=== PATIENT | female | born 1990 | race Caucasian/White ===

== ENCOUNTER 2018-05-10 21:18 | Emergency (ER) | payer OTHER ==
--- NOTE | 2018-05-10 21:33 | ED ---
Complex/Multi-Sys Presentation - HPI Summary HPI Summary: Pt is 27 y/o F c/o L shoulder pain s/p trauma onset [employer]. Pt was playing roller [employer] when she was hit shoulder to shoulder by another player, and felt fire immediately in her shoulder. Pt stayed upright and finished the game. Pt arrives to ED with ice and sling. Right hand dominant. - History Of Current Complaint [facility] Seen by Provider: 05/10/18 21:26 Hx Obtained From: Patient Onset/Duration: Sudden Onset, Lasting Hours, Still Present Timing: Constant Location: Pain At: - L anterior shoulder - Allergies/Home Medications Allergies/Adverse Reactions: Allergies Allergy/AdvReac Type Severity Reaction Status Date / Time sulfamethoxazole Allergy Vomiting Verified 05/10/18 21:22 [From Bactrim] trimethoprim [From Bactrim] Allergy Vomiting Verified 05/10/18 21:22 Home Medications: Home Medications Armodafinil (NF) [Nuvigil (NF)] 150 mg PO DAILY 05/10/18 [History Confirmed ] Sodium Oxybate [Xyrem] 450 grams PO BID 05/10/18 [History Confirmed 05/10/18] PMH/Surg Hx/FS Hx/Imm Hx Previously Healthy: Yes Respiratory History: Denies: Hx Chronic Obstructive Pulmonary Disease (COPD) Sensory History: Denies: Hx Legally Blind Infectious Disease History: No Infectious Disease History: Denies: Traveled Outside the [place] in Last 30 Days - Family History Known Family History: Positive: Cardiac Disease - Grandfather Negative: Diabetes - Social History Occupation: Employed Full-time Lives: Alone Review of Systems Negative: Fever Positive: Other - L shoulder pain All Other Systems Reviewed And Are Negative: Yes Physical Exam - Summary Physical Exam Summary: Appearance: Well-appearing, Well-nourished, lying in bed comfortably Skin: Warm, dry, no obvious rash Eyes: sclera anicteric, no conjunctival pallor ENT: mucous membranes moist, pharynx appears normal Neck: Supple, nontender Respiratory: Clear to auscultation, no signs of respiratory distress Cardiovascular: Normal S1, S2. No murmurs. Normal distal pulses in tibial and radial bilaterally. Abdomen: Soft, nontender, normal active bowel sounds present Musculoskeletal: L AC joint tenderness, no deformity, clavicle intact Neurological: A&Ox3, awake and alert, mentation is normal, speech is fluent and appropriate Psychiatric: affect is normal, does not appear anxious or depressed Triage Information Reviewed: Yes Vital Signs On Initial Exam: Initial Vitals Temp Pulse Resp BP Pulse Ox 99.3 F 105 19 116/76 100 05/10/18 21:19 05/10/18 21:19 05/10/18 21:19 05/10/18 21:19 05/10/18 21:19 Vital Signs Reviewed: Yes Diagnostics - Vital Signs Vital Signs Temp Pulse Resp BP Pulse Ox 05/10/18 21:19 99.3 F 105 19 116/76 100 - Laboratory Lab Statement: Any lab studies that have been ordered have been reviewed, and results considered in the medical decision making process. - Radiology Shoulder XR Xray Interpretation: No Acute Changes - negative, clavicle intact. Radiology Interpretation Completed By: ED Physician - pending official review. Complex Multi-Symp Course/Dx - Diagnoses Provider Diagnoses: Acromioclavicular separation, type 1 Discharge - Sign-Out/Discharge Documenting (check all that apply): Patient Departure - Discharge Plan Condition: Good Disposition: HOME Patient Education Materials: Acromioclavicular Separation (ED) Referrals: No Primary Care Phys,NOPCP [Primary Care Provider] - Additional Instructions: No contact sports until this heals, which will take several weeks at least. use the sling for comfort, but after the weekend you should be doing at least some passive range of motion of the shoulder a few times daily to keep it from getting stiff. - Billing Disposition and Condition Condition: GOOD Disposition: Home
--- NOTE | 2018-05-10 22:19 | RAD ---
INDICATION: Left shoulder pain after roller derby injury COMPARISON: None. TECHNIQUE: 4 views of the left shoulder were obtained. FINDINGS: The adequately corticated bones are in normal alignment. The acromioclavicular joint measures 5 mm in width, the top normal with of this joint. Fracture, dislocation or focal bony abnormality is seen. IMPRESSION: ABNORMAL WIDTH OF THE LEFT ACROMIOCLAVICULAR JOINT MEASURING 5 MM. IF THE PATIENT IS EXHIBITING FOCAL TENDERNESS OVER THE ACROMIOCLAVICULAR JOINT THEN GRADE 1 AC SEPARATION SHOULD BE SUSPECTED. IF CLINICALLY WARRANTED OBJECTIVE CHARACTERIZATION CAN BE MADE WITH RADIOGRAPHS OF THE BILATERAL AC JOINTS WITH AND WITHOUT HAND WEIGHTS.
[2018-05-10 22:45] VITALS: BP 120/78
== END 2018-05-10 22:43 | disposition home or self-care (01) ==
LOC: ED 21:18
DX: S43.102A Unspecified dislocation of left acromioclavicular joint, initial encounter (principal); W50.0XXA Accidental hit or strike by another person, initial encounter; Y93.51 Activity, roller skating (inline) and skateboarding; Y92.89 Other specified places as the place of occurrence of the external cause; Z88.2 Allergy status to sulfonamides; Z82.49 Family history of ischemic heart disease and other diseases of the circulatory system
CPT/HCPCS: 99282